=== PATIENT | female | born 1995 | race Hispanic/Latino ===

== ENCOUNTER 2017-10-22 19:01 | Emergency (ER) | payer SELFPAY | END 2017-10-22 19:47 | disposition home or self-care (01) | LOC: NAV ERS 19:01 | DX: K21.9 Gastro-esophageal reflux disease without esophagitis (principal); F45.8 Other somatoform disorders | CPT/HCPCS: 99283 ==

== ENCOUNTER 2018-06-10 19:49 | Emergency (ER) | payer SELFPAY ==
[2018-06-10 21:17] LABS: Bilirubin Negative (Negative); Blood, Urine Trace (Negative); Glucose, Urine (Dipstick) Negative (Negative); Leukocyte Negative (Negative); Nitrite Negative (Negative); Protein, Urine (Dipstick) Negative (Neg-Trace); Specific Gravity, Urine 1.025 (1.005-1.030); Urobilinogen 0.2 mg/dL (0.2-1.0)
[2018-06-10 21:34] LABS: Clarity SL HAZY (Clear); RBC/HPF 0-3 HPF (0-3); Squamous Epithelial 0-3 HPF (0-3); WBC/HPF 0-3 HPF (0-3)
== END 2018-06-10 23:59 | disposition short-term general hospital (02) ==
LOC: NAV ERS 19:49
DX: O99.89 Other specified diseases and conditions complicating pregnancy, childbirth and the puerperium (principal); R10.2 Pelvic and perineal pain; Z3A.01 Less than 8 weeks gestation of pregnancy
CPT/HCPCS: 81003; 81015; 84702; 86900; 86901; 99284

== ENCOUNTER 2019-11-30 08:54 | Emergency (ER) | payer BC, OTHER | END 2019-11-30 10:25 | disposition home or self-care (01) | LOC: NAV ERS 08:54 | DX: J06.9 Acute upper respiratory infection, unspecified (principal); Z20.828 Contact with and (suspected) exposure to other viral communicable diseases; K21.9 Gastro-esophageal reflux disease without esophagitis; Z79.899 Other long term (current) drug therapy | CPT/HCPCS: 87635; 99283; U0003 ==